=== PATIENT | female | born 1935 | race Caucasian/White ===

== ENCOUNTER 2017-11-28 13:03 | Inpatient (IN) | payer BC ==
[~2017-11-28] VITALS: Ht 174 cm; Wt 63.5 kg
[2017-11-28] VITALS (10 sets, daily range): BP systolic 130–156; BP diastolic 55–82
[2017-11-28] MEDS ORDERED: IV NS 0.9% 1,000 ML BAG IV ONE (13:30)
--- NOTE | 2017-11-28 13:30 | NUR ---
WITNESSED SYNCOPE AT BOARD AND CARE, ASSISTED TO FLOOR. PT AAOX3, VSS. DENIES CP, SOB, DIZZINESS, N/V/D, WEAKNESS @ THIS TIME. PT SEEN & EVAL'D BY COLT. WILL CONT TO MONITOR.
[2017-11-28 13:44] LABS: BASOPHILS % (AUTO) 0.3 % (0.0-2.0); EOSINOPHILS % (AUTO) 2.8 % (0.0-6.0); HEMATOCRIT 25 % (33-45); HEMOGLOBIN 7.6 g/dL (11.5-14.8); LYMPHOCYTES # (AUTO) 0.5 /CMM (0.8-4.8); LYMPHOCYTES % (AUTO) 10.7 % (20.0-44.0); MEAN CORPUSCULAR HGB CONC 31 g/dl (31.0-36.0); MEAN CORPUSCULAR VOLUME 71 fL (82-100); MONOCYTES # (AUTO) 0.4 /CMM (0.1-1.30); MONOCYTES % (AUTO) 7.2 % (2.0-12.0); PLATELET COUNT (AUTO) 282 /CMM (150-450); RDW COEFFICIENT OF VARIATION 18.5 (11.5-15.0); RED BLOOD CELL COUNT(AUTO) 3.47 MIL/uL (4.0-5.2)
[2017-11-28 13:54] LABS: CALCIUM, SERUM 8.1 mg/dL (8.5-10.1); CARBON DIOXIDE 27 mmol/L (21-32); CHLORIDE 107 mmol/L (98-107); CREATININE 1.2 mg/dL (0.6-1.3); GLUCOSE 98 mg/dL (74-106); SODIUM SERUM 140 mmol/L (136-145); UREA NITROGEN, BLOOD 21 mg/dL (7-18)
[2017-11-28 13:58] LABS: INR 1.03 (0.85-1.15)
[2017-11-28 14:03] LABS: TROPONIN I < 0.017 ng/mL (0.00-0.056)
[2017-11-28] MEDS ORDERED: PANTOPRAZOLE 40 MG VIAL IV ONE (15:00)
[2017-11-28] MEDS ORDERED: PANTOPRAZOLE 40 MG VIAL ONE (15:48)
[2017-11-28] MEDS ORDERED: DONE10TA44 PO (15:50)
[2017-11-28] MEDS ORDERED: FOLI1TAB16 PO (15:50)
[2017-11-28] MEDS ORDERED: ASPI-1169 PO (15:50)
[2017-11-28] MEDS ORDERED: THIA100T13 PO (15:50)
[2017-11-28] MEDS ORDERED: FISH1CAP16 PO (15:50)
[2017-11-28] MEDS ORDERED: ACET-868 PO (15:50)
[2017-11-28] MEDS ORDERED: FEXO-63 PO (15:50)
[2017-11-28] MEDS ORDERED: SERT25TA PO (15:50)
[2017-11-28] MEDS ORDERED: OMEP20CA10 PO (15:50)
[2017-11-28] MEDS ORDERED: MEMA10TA PO (15:50)
[2017-11-28] MEDS ORDERED: ATOR10TA PO (15:50)
[2017-11-28] MEDS ORDERED: MULT-1160 PO (15:50)
[2017-11-28] MEDS ORDERED: FLUT16SP BNOSTRILS (15:50)
--- NOTE | 2017-11-28 15:53 | NUR ---
PT LAYING COMFORTABLY, VSS. DENIES CP, SOB, DIZZINESS, N/V/D, WEAKNESS @ THIS TIME. WILL CONT TO MONITOR.
[2017-11-28 15:57] LABS: OCCULT BLOOD STOOL NEGATIVE (NEGATIVE)
[2017-11-28] MEDS ORDERED: ONDANSETRON HCL/PF 4 MG/2 ML VIAL IVP PRN (16:30)
[2017-11-28] MEDS ORDERED: HYDROCODONE/APAP 5/325MG 1 EACH TABLET PO PRN (16:30)
[2017-11-28] MEDS ORDERED: MAGNESIUM HYDROXIDE 30 ML UDC PO PRN (16:30)
[2017-11-28] MEDS ORDERED: ZOLPIDEM TARTRATE 5 MG TABLET PO PRN (16:30)
--- NOTE | 2017-11-28 17:00 | NUR ---
MEDICAL ASSISTANT PER DIEMCLOCK ASSEMBLER NOTE PATIENT WAS BROUGHT TO THE UNITE ON A GURNEY FROM ER, ACCOMPANIED BY PRINTING MACHINIST BURTON AND THE HOSPITALITY HOST. PATIENT IS ALERT ORIENTED X3, ON ROOM AIR , TOLERATING WELL. PATIENT IS STEADY, AMBULATED FROM GURNEY TO THE BED INDEPENDENTLY. RESPIRATIONS EVEN AND UNLABORED, IN NO APPARENT DISTRESS OR DISCOMFORT AT THIS TIME. DENIES PAIN AND SOB. PATIENT IS STABLE, VITAL SIGNS STABLE. PHYSICAL ASSESSMENT PERFORMED, HISTORY OF HEALTH CONDITIONS OBTAINED FROM THE PATIENT. PATIENT IS WITH HER PERSONAL CLOTHES, REFUSED TO CHANGE INTO A HOSPITAL GOWN FOR NOW. REFUSED SKIN CHECK BUT REPORTED SHE DOES NOT HAVE ANY IMPAIRMENTS, NO OPEN WOUNDS. AUXILIARY ENGINEER WAS APPLIED. SINUS RHYTHM IS SHOWING ON THE SCREEN. REVIEWED PATIENT'S BELONGINGS LIST, SIGNED BY STEPHIE SHELL WAS PLACED IN A CHART. PATIENT WITH RIGHT FA IVC 20G, SALINE LOCK. PATENT AND INTACT. SAFETY MEASURES WERE APPLIED. BED IN LOW LOCKED POSITION, SIDE RAILS UP X2, CALL LIGHT WITHIN EASY REACH. ORIENTED TO THE ROOM AND THE UNIT. NOTIFIED DINO GONZALEZ NP ABOUT PATIENT'S ARRIVAL. WILL CARRY OUT FURTHER ORDERS AND CONTINUE TO MONITOR.
[2017-11-28] MEDS: PANTOPRAZOLE 40 MG VIAL IV SCH (17:23)
[2017-11-28] MEDS: IV NS 0.9% 1,000 ML IV PRN (17:23)
--- NOTE | 2017-11-28 18:10 | NUR ---
PATIENT BECOME CONFUSED AND DISORIENTED. PULLED OUT HER IV WHILE TRYING TO GET OUT OF BED, TIP WAS CHECKED AND WAS INTACT. REPORTS SHE IS GOING HOME AND SHE DOESNT KNOW WHY SHE IS HERE. REORIENTED TO THE REALITY. ENCOURAGED REST. WILL CONTINUE TO MONITOR AT THIS TIME.
--- NOTE | 2017-11-28 18:30 | NUR ---
NEW IV PLACED ON LEFT FOREARM 20G. SALINE LOCK AT THIS TIME TO PREVENT PATIENT FROM PULLING IT OUT AGAIN. WILL CONTINUE TO MONITOR.
--- NOTE | 2017-11-28 19:30 | NUR ---
SCRIPT READER CLOSING NOTE PATIENT IN BED. ALERT, ORIENTED X1-2. ON ROOM AIR, TOLERATING WELL. IN NO APPARENT DISTRESS OR DISCOMFORT AT THIS TIME. RESPIRATIONS EVEN AND UNLABORED. DENIES PAIN AND SOB. PATIENT IS ABLE TO COMMUNICATE NEEDS. NEEDS FREQUENT REORIENTATION. ABLE TO AMBULATE TO THE BATHROOM INDEPENDENTLY. ON TELE MONITORING WITH SINUS RHYTHM AND HR OF 76. LEFT FA 20G, IVC, PATENT AND INTACT. SL AT THIS TIME. PATIENT KEPT CLEAN AND COMFORTABLE, REFUSED TO WEAR A HOSPITAL GOWN. SAFETY MEASURES IN PLACE, BED IN LOW LOCKED POSITION, SIDE RAILS UP X2, ROOM CLOSE TO THE NURSING STATION. CALL LIGHT WITHIN EASY REACH. WILL ENDORSE TO PM NURSE FOR ULISSES.
[2017-11-28 20:21] LABS: IRON, SERUM 15 ug/dl (50-175); TOTAL IRON BINDING CAPACITY 347 ug/dl (250-450)
[2017-11-29] VITALS (8 sets, daily range): BP systolic 127–161; BP diastolic 58–76
--- NOTE | 2017-11-29 01:19 | NUR ---
RN NOTES PATIENT TOLERATED ONE UNIT OF PACKED RBC TRANSFUSION. NO ADVERSE REACTION NOTED. WILL CONTINUE TO MONITOR.
--- NOTE | 2017-11-29 01:43 | NUR ---
RECEIVED PATIENT IN BED AWAKE. AO X 1, ABLE TO MAKE NEEDS KNOWN. NO ACUTE DISTRESS NOTED. DENIES ANY PAIN AT THIS TIME. IV SITE PATENT, INTACT; FLUSHED. SAFETY REMINDERS GIVEN. ON LOW BED WITH BILATERAL UPPER SIDE RAILS UP. CALL STINSON WITHIN EASY REACH. WILL CONTINUE TO MONITOR.
--- NOTE | 2017-11-29 06:18 | NUR ---
PATIENT ASLEEP, EASILY AROUSABLE. RESPIRATIONS EVEN. NO SIGNS OF PAIN NOTED. NEEDS ATTENDED. KEPT CLEAN AND DRY. SAFETY PRECAUTIONS AND COMFORT MEASURES IN PLACE. WILL GIVE REPORT TO DAY SHIFT FOR CONTINUITY OF CARE.
[2017-11-29 07:02] LABS: CALCIUM, SERUM 8.2 mg/dL (8.5-10.1); CARBON DIOXIDE 25 mmol/L (21-32); CHLORIDE 110 mmol/L (98-107); GLUCOSE 99 mg/dL (74-106); PHOSPHORUS 4.1 mg/dL (2.5-4.9); SODIUM SERUM 144 mmol/L (136-145); UREA NITROGEN, BLOOD 20 mg/dL (7-18)
[2017-11-29 07:07] LABS: CHOLESTEROL 145 mg/dL (<200); HDL CHOLESTEROL 71 mg/dL (40-60); LDL 73 mg/dL (0-99); TRIGLYCERIDES 60 mg/dL (30-150)
[2017-11-29 07:29] LABS: BASOPHILS % (AUTO) 0.3 % (0.0-2.0); EOSINOPHILS % (AUTO) 3.1 % (0.0-6.0); HEMATOCRIT 28 % (33-45); HEMOGLOBIN 8.3 g/dL (11.5-14.8); LYMPHOCYTES # (AUTO) 0.7 /CMM (0.8-4.8); LYMPHOCYTES % (AUTO) 15.4 % (20.0-44.0); MEAN CORPUSCULAR HGB CONC 30 g/dl (31.0-36.0); MEAN CORPUSCULAR VOLUME 74 fL (82-100); MONOCYTES # (AUTO) 0.4 /CMM (0.1-1.30); MONOCYTES % (AUTO) 7.8 % (2.0-12.0); NEUTROPHILS # (AUTO) 3.3 /CMM (1.8-8.9); NEUTROPHILS % (AUTO) 73.4 % (43.0-81.0); PLATELET COUNT (AUTO) 250 /CMM (150-450); RDW COEFFICIENT OF VARIATION 20.2 (11.5-15.0); RED BLOOD CELL COUNT(AUTO) 3.71 MIL/uL (4.0-5.2); WHITE BLOOD COUNT (AUTO) 4.5 K/uL (4.3-11.0)
--- NOTE | 2017-11-29 07:41 | NUR ---
CROSS ENTERPRISE INTEGRATOR OPENING NOTE RECEIVED PATIENT IN BED. SLEEPING, EASILY AROUSED WITH VERBAL STIMULI, ORIENTED X2. ON ROOM AIR, TOLERATING WELL. IN NO APPARENT DISTRESS OR DISCOMFORT AT THIS TIME. RESPIRATIONS EVEN AND UNLABORED. DENIES PAIN AND SOB. PATIENT IS ABLE TO COMMUNICATE NEEDS. NEEDS FREQUENT REORIENTATION. ABLE TO AMBULATE TO THE BATHROOM INDEPENDENTLY. ON TELE MONITORING WITH SINUS RHYTHM AND HR OF 65. LEFT FA 20G IVC WITH FLUIDS RUNNING AT 60ML/HR, PATENT AND INTACT. PATIENT KEPT CLEAN AND COMFORTABLE. SAFETY MEASURES IN PLACE, BED IN LOW LOCKED POSITION, SIDE RAILS UP X2, ROOM CLOSE TO THE NURSING STATION. CALL LIGHT WITHIN EASY REACH. WILL CONTINUE TO MONITOR.
[2017-11-29 10:02] LABS: EOSINOPHILS % (MANUAL) 4 % (0-4); LYMPHOCYTES % (MANUAL) 15 % (16-48); MONOCYTES % (MANUAL) 3 % (0-11.0); NEUTROPHILS % (MANUAL) 78 (42-76)
[2017-11-29 10:46] LABS: THYROID STIMULATING HORMONE 4.89 uIU/mL (0.358-3.74); URIC ACID 3.5 mg/dL (2.6-7.2)
[2017-11-29] MEDS: ASPIRIN 81 MG TAB.CHEW PO SCH (11:01)
[2017-11-29] MEDS: MEMANTINE HCL 5 MG TABLET PO SCH ×2 (11:01→18:09)
[2017-11-29] MEDS: FLUTICASONE PROPIONATE 16 GM BOTTLE NS SCH (13:43)
[2017-11-29] MEDS ORDERED: SOD FERRIC GLUC 125 MG in IV NS 0.9% 100 ML IV SCH (14:00)
[2017-11-29] MEDS ORDERED: FEXOFENADINE HCL (60 MG) 60 MG TABLET PO PRN (17:00)
[2017-11-29] MEDS: PANTOPRAZOLE 40 MG VIAL IV SCH (18:09)
--- NOTE | 2017-11-29 18:45 | NUR ---
MS RN CLOSING NOTE PATIENT IN BED. ALERT, ORIENTED X1-2. FREQUENT EPISODES OF DISORIENTATION AND CONFUSION. ON ROOM AIR, TOLERATING WELL. IN NO APPARENT DISTRESS OR DISCOMFORT AT THIS TIME. RESPIRATIONS EVEN AND UNLABORED. DENIES PAIN AND SOB. PATIENT IS ABLE TO COMMUNICATE NEEDS. NEEDS FREQUENT REORIENTATION. ABLE TO AMBULATE TO THE BATHROOM INDEPENDENTLY. LEFT FA 20G, IVC, PATENT AND INTACT SL AT THIS TIME. PATIENT KEPT CLEAN AND COMFORTABLE, REFUSED TO WEAR A HOSPITAL GOWN. SAFETY MEASURES IN PLACE, BED IN LOW LOCKED POSITION, SIDE RAILS UP X2, ROOM CLOSE TO THE NURSING STATION. CALL LIGHT WITHIN EASY REACH. WILL ENDORSE TO PM NURSE FOR ULISSES.
--- NOTE | 2017-11-29 19:00 | NUR ---
PATIENT PULLED OUT HER IV CANAL. DISCUSSED WITH TOMMY, THE PM RN. PATIENT NOTED TO HAVE INCREASED CONFUSION AND DISORIENTATION. CLAIMS THE IV WAS THERE FOR WEEKS NOW, THAT IS WHY SHE REMOVED IT TO HAVE A NEW ONE. ENDORSED TO PM NURSE TO ESTABLISH NEW ACCESS.
--- NOTE | 2017-11-29 19:10 | NUR ---
MS RN OPENING NOTE Patient was seen sitting in a chair by the bedside AAOx1; patient is well-spoken, but very forgetful with episodes of confusion. Patient is breathing comfortably on RA with no SOB and no signs of acute distress. Per day shift nurse, patient pulled out her IV just prior to shift change; this is the fourth IV that the patient has removed, despite education and using kerilex to cover. I oriented patient to time and place, and provided education on use of the call proctor. Patient has no immediate needs or concerns at this time. Will continue to monitor.
[2017-11-29 20:57] LABS: APPEARANCE,URINE CLEAR (CLEAR); BILIRUBIN,URINE NEGATIVE (NEGATIVE); BLOOD, URINE NEGATIVE Ery/uL (NEGATIVE); COLOR,URINE YELLOW (YELLOW); KETONES,URINE NEGATIVE (NEGATIVE); LEUKOCYTE ESTERASE ,URINE NEGATIVE (NEGATIVE); NITRITE, URINE NEGATIVE (NEGATIVE); PROTEIN,URINE NEGATIVE (NEGATIVE); UGLUCOSE NEGATIVE (NEGATIVE); UROBILINOGEN,URINE 0.2 EU/dL (0.2)
--- NOTE | 2017-11-29 21:35 | NUR ---
MS RN NOTE - New IV Patient had pulled out her IV just prior to shift change (see previous notes). New IV 20g was placed in the left FA with positive blood return and good flush. NS at 60ml/hr is running with no signs of leaking or infiltration. Patient with history of dementia was provided with education on IV. IV was also wrapped with Kerilex to help prevent patient from pulling on it.
[2017-11-29] MEDS ORDERED: ATORVASTATIN 10 MG TABLET PO SCH (22:00)
[2017-11-29] MEDS ORDERED: DONEPEZIL 5 MG TABLET PO SCH (22:00)
[2017-11-30] MEDS: IV NS 0.9% 1,000 ML IV PRN (00:38)
--- NOTE | 2017-11-30 03:00 | NUR ---
MS RN NOTE - IV pulled out Upon entering patient's room I observed that her IV had been removed and was sitting on the bedside table. The patient opened her eyes, and I said, "Sailaja, you pulled your IV out". The patient responded, "I did?" and looked at her arm and said, "Oh I guess I did". I explained to the patient why she shouldn't pull her IVs out (per previous reports, this is the fifth IV that she's removed), provided her education on the purpose of having the IV, and told her that I'd like to put another IV in. The patient refused, but said that she might allow me to do so later in the morning. I will try again later.
--- NOTE | 2017-11-30 06:00 | NUR ---
MS RN NOTE - New IV Patient agreed to let me put in a new IV. 20g IV was inserted into the right forearm with positive blood return and good flush. Patient was educated on the purpose of IV and necessity of it staying in. IV was wrapped with Kerlix and covered with burn netting to help prevent patient from pulling it out.
--- NOTE | 2017-11-30 07:28 | NUR ---
MS RN CLOSING NOTE Patient is AAOx1, breathing comfortably on RA with no SOB, and no signs of acute distress. Patient pulled out her IV in the middle of the night; this was the fifth IV patient pulled out since admission. New IV inserted in the right FA, patent and intact. Otherwise patient slept well with no complications overnight and remains in stable condition. Bed is low/locked, two side rails up, and call proctor within reach. Patient care endorsed to day shift nurse.
[2017-11-30 07:37] LABS: BASOPHILS % (AUTO) 0.7 % (0.0-2.0); EOSINOPHILS % (AUTO) 4.1 % (0.0-6.0); HEMATOCRIT 27 % (33-45); HEMOGLOBIN 8.4 g/dL (11.5-14.8); LYMPHOCYTES # (AUTO) 0.5 /CMM (0.8-4.8); LYMPHOCYTES % (AUTO) 14.9 % (20.0-44.0); MEAN CORPUSCULAR HGB CONC 32 g/dl (31.0-36.0); MEAN CORPUSCULAR VOLUME 73 fL (82-100); MONOCYTES # (AUTO) 0.4 /CMM (0.1-1.30); MONOCYTES % (AUTO) 10.5 % (2.0-12.0); NEUTROPHILS # (AUTO) 2.6 /CMM (1.8-8.9); NEUTROPHILS % (AUTO) 69.8 % (43.0-81.0); PLATELET COUNT (AUTO) 269 /CMM (150-450); RDW COEFFICIENT OF VARIATION 19.7 (11.5-15.0); RED BLOOD CELL COUNT(AUTO) 3.65 MIL/uL (4.0-5.2); WHITE BLOOD COUNT (AUTO) 3.6 K/uL (4.3-11.0)
[2017-11-30 07:38] LABS: CALCIUM, SERUM 8.1 mg/dL (8.5-10.1); CARBON DIOXIDE 26 mmol/L (21-32); CHLORIDE 107 mmol/L (98-107); CREATININE 1.1 mg/dL (0.6-1.3); GLUCOSE 91 mg/dL (74-106); PHOSPHORUS 4.3 mg/dL (2.5-4.9); POTASSIUM 3.8 mmol/L (3.5-5.1); SODIUM SERUM 139 mmol/L (136-145); UREA NITROGEN, BLOOD 17 mg/dL (7-18)
[2017-11-30 08:00] VITALS: BP 166/70
[2017-11-30] MEDS: FLUTICASONE PROPIONATE 16 GM BOTTLE NS SCH (08:45)
[2017-11-30] MEDS: ASPIRIN 81 MG TAB.CHEW PO SCH (08:46)
[2017-11-30] MEDS: MEMANTINE HCL 5 MG TABLET PO SCH (08:46)
[2017-11-30] MEDS ORDERED: SERTRALINE HCL 25 MG TABLET PO SCH (09:00)
[2017-11-30] MEDS ORDERED: FOLIC ACID 1 MG TABLET PO SCH ×2 (09:00)
[2017-11-30] MEDS ORDERED: THIAMINE HCL 100 MG TABLET PO SCH (09:00)
[2017-11-30] MEDS ORDERED: MULTIVIT, IRON, MIN NO. 8, FA 1 TAB PO SCH (09:00)
--- NOTE | 2017-11-30 12:32 | NUR ---
PATIENT AAOX3 ALL FOLLOW COMMANDS FORGETFUL ROOM AIR NO SOB NON LABORED BREATHING ABDOMEN SOFT NON TENDER DIET TOLERATED SKIN IS DRY INTACT NO EDEMA NOTED DISCHARGE INSTRUCTION PROVIDED TO PT AND ASSIST LIVING FACILITY RUTH PT BASE LINE BLOOD PRESSURE IS 150 TO 170 ENDORSED TO PMD FOLLOW UP DIET ACTIVIT PT VERBALIZED UNDERSTANDING WELL ALL BELONGS RELEASED IV HELP LOCK REMOVED PATIENT DISCHARGED TO [facility] BY AMBULANCE AT 1230
[2017-12-01 12:17] LABS: CALCITRIOL VIT D,1, 25 DIHYDRO 32.5 pg/mL (19.9-79.3)
== END 2017-11-30 12:15 | DRG 811 ==
LOC: ER 13:04 → TELE 15:23 → MED 11-29 16:12
PROVIDERS: ADMIT Nurse Practitioner Acute Care; ATTEND Nurse Practitioner Acute Care
PROC: 30233N1 Transfusion of Nonautologous Red Blood Cells into Peripheral Vein, Percutaneous Approach (ICD-10-PCS; principal; 2017-11-28)
DX: D50.9 Iron deficiency anemia, unspecified (principal); G93.41 Metabolic encephalopathy; F03.90 Unspecified dementia, unspecified severity, without behavioral disturbance, psychotic disturbance, mood disturbance, and anxiety; I10 Essential (primary) hypertension; Z79.82 Long term (current) use of aspirin; Z79.899 Other long term (current) drug therapy; E86.0 Dehydration
CPT/HCPCS: 36415; 70450-TC; 71045-TC; 80048-TC; 80061-TC; 81000-TC; 82272-TC; 82378; 82652; 82728-TC; 83540-TC; 83615-TC; 83735-TC; 84100-TC; 84443-TC; 84484-TC; 84550-TC; 85025-TC; 85730-TC; 86850-TC; 86921-TC; 87081-TC; 87086-TC; A4606; C9113; J2916; J7030; J7050; P9016-BL; Z7610

== ENCOUNTER 2018-09-01 12:38 | Inpatient (IN) | payer BC ==
[~2018-09-01] VITALS: Ht 172.7 cm; Wt 61.2 kg
[~2018-09-01 12:38] MED LIST: ACET-868 PO; ASPI-1169 PO; ATOR10TA PO; DONE10TA44 PO; FEXO-63 PO; FISH1CAP16 PO; FLUT16SP BNOSTRILS; FOLI1TAB16 PO; MEMA10TA PO; MULT-1160 PO; OMEP20CA10 PO; SERT25TA PO; THIA100T13 PO
--- NOTE | 2018-09-01 12:51 | NUR ---
BIB [facility], UNWITNESSED SYNCOPAL EPISODE WHILE WALKING,STS, SHE WOKE UP ON THE GROUND AND CALLED FOR HELP. PATIENT A/OX4, BREATHING EVEN AND UNLABORED, ATTACHED ON THE ELECTRICAL PARTS RECONDITIONER. WAITING FOR MD PATRICIA.
[2018-09-01] MEDS ORDERED: IV NS 0.9% 1,000 ML BAG IV ONE (13:00)
[2018-09-01 13:05] LABS: BASOPHILS % (AUTO) 0.6 % (0.0-2.0); EOSINOPHILS % (AUTO) 1.4 % (0.0-6.0); HEMATOCRIT 24 % (33-45); HEMOGLOBIN 7.5 g/dL (11.5-14.8); LYMPHOCYTES # (AUTO) 0.5 /CMM (0.8-4.8); LYMPHOCYTES % (AUTO) 8.5 % (20.0-44.0); MEAN CORPUSCULAR HGB CONC 31 g/dl (31.0-36.0); MEAN CORPUSCULAR VOLUME 73 fL (82-100); MONOCYTES # (AUTO) 0.4 /CMM (0.1-1.30); MONOCYTES % (AUTO) 7.7 % (2.0-12.0); NEUTROPHILS # (AUTO) 4.5 /CMM (1.8-8.9); NEUTROPHILS % (AUTO) 81.8 % (43.0-81.0); PLATELET COUNT (AUTO) 205 /CMM (150-450); RED BLOOD CELL COUNT(AUTO) 3.31 MIL/uL (4.0-5.2); WHITE BLOOD COUNT (AUTO) 5.5 K/uL (4.3-11.0)
[2018-09-01 13:12] LABS: CALCIUM, SERUM 7.7 mg/dL (8.5-10.1); CARBON DIOXIDE 25 mmol/L (21-32); CHLORIDE 111 mmol/L (98-107); GLUCOSE 95 mg/dL (74-106); POTASSIUM 4.2 mmol/L (3.5-5.1); SODIUM SERUM 142 mmol/L (136-145); UREA NITROGEN, BLOOD 21 mg/dL (7-18)
[2018-09-01] MEDS ORDERED: LACT-58 PO (13:17)
[2018-09-01] MEDS ORDERED: CYAN100T3 PO (13:17)
[2018-09-01] MEDS ORDERED: LOSA25TA27 PO (13:17)
[2018-09-01] MEDS ORDERED: AZEL137S7 BNOSTRILS (13:17)
[2018-09-01] MEDS ORDERED: SIME40DR2 PO (13:17)
[2018-09-01] MEDS ORDERED: MULT-1168 PO (13:17)
[2018-09-01 13:19] LABS: ALANINE AMINOTRANSFERASE 17 U/L (12-78); ALKALINE PHOSPHATASE 55 U/L (46-116); ASPARTATE AMINOTRANSFERASE 19 U/L (15-37); BILIRUBIN,DIRECT 0.2 mg/dL (0.0-0.2); TOTAL PROTEIN, SERUM 5.4 g/dL (6.4-8.2)
--- NOTE | 2018-09-01 13:47 | NUR ---
PAGED DR QUINTEROS FOR ADMISSION
[2018-09-01 14:06] LABS: EOSINOPHILS % (MANUAL) 3 % (0-4); LYMPHOCYTES % (MANUAL) 3 % (16-48); MONOCYTES % (MANUAL) 6 % (0-11.0); NEUTROPHILS % (MANUAL) 88 (42-76)
--- NOTE | 2018-09-01 14:50 | NUR ---
REPORT GIVEN TO ROMINA BARGER
[2018-09-01 15:17] LABS: OCCULT BLOOD STOOL POSITIVE (NEGATIVE)
[2018-09-01] MEDS ORDERED: PANTOPRAZOLE 40 MG VIAL IV SCH (15:30)
--- NOTE | 2018-09-01 15:30 | NUR ---
PATIENT TRANSFERRED TO ROOM 104, ROOM CHANGED BY CHARGE NURSE. PATIENT A/OX4, DENIES DIZZINESS, IN STABLE CONDITION.
[2018-09-01] MEDS ORDERED: PANTOPRAZOLE 40 MG VIAL ONE (15:47)
[2018-09-01] MEDS ORDERED: MAG HYDROX/AL HYDROX/SIMETH 30 ML UDC PO PRN (16:00)
[2018-09-01] MEDS ORDERED: HYDROCODONE/APAP 5/325MG 1 EACH TABLET PO PRN (16:00)
[2018-09-01] MEDS ORDERED: MAGNESIUM HYDROXIDE 30 ML UDC PO PRN (16:00)
[2018-09-01] MEDS ORDERED: ONDANSETRON HCL/PF 4 MG/2 ML VIAL IVP PRN (16:00)
[2018-09-01] MEDS ORDERED: ACETAMINOPHEN 325 MG TABLET PO PRN (16:00)
[2018-09-01] MEDS ORDERED: Z GUARD REMEDY 2 OZ OINT TP PRN (16:00)
[2018-09-01] MEDS ORDERED: ZOLPIDEM TARTRATE 5 MG TABLET PO PRN (16:00)
[2018-09-01 17:00] VITALS: BP 140/82
[2018-09-01] MEDS: ENSURE ENLIVE 237 ML LIQUID (VANILLA) PO SCH (17:00)
[2018-09-01] MEDS: SIMETHICONE SUSP 40 MG/0.6 ML BOTTLE PO SCH (17:00)
[2018-09-01] MEDS: MEMANTINE HCL 5 MG TABLET PO SCH (17:00)
[2018-09-01] MEDS: DONEPEZIL 5 MG TABLET PO SCH (17:00)
[2018-09-01] MEDS: NEXIUM 40 MG VIAL IV SCH (17:49)
--- NOTE | 2018-09-01 18:42 | NUR ---
BLOOD BANK ISSUES RN BROUGHT CONSENT ALONG WITH BLOOD BANK STICKER TO THE LAB. LAB ACCEPTED AND VERIFIED STICKER WAS PRESENT OFF THE PATIENT DIRECTLY. RN CAME DIRECTLY BACK TO SCAN BLOOD BANK TAG AND IT WAS CUT OFF. RN AND PATIENT UNAWARE OF THE REMOVAL OF BLOOD BANK TAG. LAB AWARE, NEED TO RETURN BLOOD AND REPEAT ENTIRE PROCESS DUE TO INAPPROPRIATE REMOVAL OF BLOOD BANK BAND. WILL ENDORSE TO NEXT SHIFT.
--- NOTE | 2018-09-01 19:30 | NUR ---
TAPE RECORDING MACHINE OPERATOR NOTE: RECEIVED PT ON BED ALERT AND ORIENTED X3. ABLE TO MAKE NEEDS KNOWN. NO APPARENT DISTRESS NOTED. PT COMPLAINING OF 5/10 HIP PAIN. ON ROOM AIR, BREATHING EVEN AND UNLABORED WITH NORMAL RESPIRATIONS. ON TELE MONITOR SINUS RHYTHM HR 70BPM. IV ON RIGHT FOREARM #20 INTACT AND PATENT, FLUSHING WELL. KEPT CLEAN, DRY AND COMFORTABLE. CALL LIGHT PLACED WITHIN REACH. SIDE RAILS UP X3. PT REFUSED TO PUT THE BED ALARM ON, EXPLAINED RISKS AND BENEFITS TO PT BUT PT STILL REFUSED TO TURN IT ON. WILL MONITOR THE PT CLOSELY.
[2018-09-01 20:00] VITALS: BP 154/70
--- NOTE | 2018-09-01 21:10 | NUR ---
SHEET IRONWORKER NOTE: PT STATED THAT SHE WANTS TO LEAVE AMA TOMORROW AM, PER PT "I WANT TO GO BACK TO MY FACILITY. I KNOW MY BODY, THERE'S NOTHING WRONG WITH ME". EXPLAINED TO HER THE RISKS OF LEAVING AMA AND THE PLAN OF CARE BUT PT STILL VERBALIZING THAT SHE WANTS TO LEAVE AND THAT SHE REFUSED THE PROCEDURE THAT WAS SUPPOSED TO BE DONE TOMORROW. HAFSA SERRANO, NADINE NOTIFIED REGARDING PATIENT'S REFUSAL OF THE PROCEDURE. CHARGE NURSE SAUL ALSO MADE AWARE
[2018-09-01] MEDS: ATORVASTATIN 10 MG TABLET PO SCH (21:21)
[2018-09-01 21:54] VITALS: BP 154/70
[2018-09-01] MEDS: SUCRALFATE 1 G TABLET PO SCH (22:00)
[2018-09-01 22:14] VITALS: BP 158/71
[2018-09-01 22:44] VITALS: BP 154/74
[2018-09-02] VITALS (7 sets, daily range): BP systolic 148–172; BP diastolic 52–88
[2018-09-02] MEDS: IV NS 0.9% 1,000 ML IV PRN ×2 (02:38→22:35)
--- NOTE | 2018-09-02 02:44 | NUR ---
INSULATION MACHINE OPERATOR NOTE: PT HAD EPISODES OF CONFUSION. PT PULLED OUT HER IV X2. CHARGE NURSE AWARE. WILL CONTINUE TO MONITOR PT.
[2018-09-02 06:37] LABS: BASOPHILS % (AUTO) 0.4 % (0.0-2.0); EOSINOPHILS % (AUTO) 2.4 % (0.0-6.0); HEMATOCRIT 32 % (33-45); HEMOGLOBIN 10.2 g/dL (11.5-14.8); LYMPHOCYTES # (AUTO) 0.7 /CMM (0.8-4.8); LYMPHOCYTES % (AUTO) 12.8 % (20.0-44.0); MEAN CORPUSCULAR HGB CONC 32 g/dl (31.0-36.0); MEAN CORPUSCULAR VOLUME 74 fL (82-100); MONOCYTES # (AUTO) 0.5 /CMM (0.1-1.30); MONOCYTES % (AUTO) 8.4 % (2.0-12.0); NEUTROPHILS # (AUTO) 4.4 /CMM (1.8-8.9); PLATELET COUNT (AUTO) 235 /CMM (150-450); RED BLOOD CELL COUNT(AUTO) 4.31 MIL/uL (4.0-5.2); WHITE BLOOD COUNT (AUTO) 5.8 K/uL (4.3-11.0)
--- NOTE | 2018-09-02 06:40 | NUR ---
SERVICE OPERATIONS MANAGER NOTES: PT STILL HAS EPISODES OF CONFUSION, BUT NO APPARENT DISTRESS NOTED AT THIS TIME. NO COMPLAINTS OF PAIN OR DISCOMFORT. ON ROOM AIR, NO SOB NOTED. SINUS RHYTHM ON TELE MONITOR HR 72BPM. IV REINSERTED ON LEFT FOREARM #20, IVF INFUSING WELL. PT WAS ABLE TO AMBULATE TO THE BATHROOM WITH ASSIST. CALL LIGHT PLACED WITHIN REACH. SAFETY AND FALL PRECAUTIONS OBSERVED AND MAINTAINED. WILL ENDORSE TO DAY SHIFT RN FOR CONTINUITY OF CARE.
[2018-09-02 06:50] LABS: CALCIUM, SERUM 8.6 mg/dL (8.5-10.1); CARBON DIOXIDE 24 mmol/L (21-32); CHLORIDE 106 mmol/L (98-107); CREATININE 1.1 mg/dL (0.6-1.3); GLUCOSE 91 mg/dL (74-106); PHOSPHORUS 3.6 mg/dL (2.5-4.9); POTASSIUM 3.8 mmol/L (3.5-5.1); SODIUM SERUM 141 mmol/L (136-145); UREA NITROGEN, BLOOD 15 mg/dL (7-18)
[2018-09-02 06:52] LABS: CHOLESTEROL 150 mg/dL (<200); HDL CHOLESTEROL 72 mg/dL (40-60); LDL 70 mg/dL (0-99); THYROID STIMULATING HORMONE 5.408 uIU/mL (0.358-3.74); TRIGLYCERIDES 75 mg/dL (30-150)
--- NOTE | 2018-09-02 07:05 | NUR ---
IT INFRASTRUCTURE ENGINEER OPENING NOTES RECEIVED PT LYING ON BED,ALERT/ORIENTED X3 WITH EPISODES OF CONFUSION..ON TELE HR IS SR WITH 63.NO SOB AND ACUTE DISTRESS NOTED,ON ROOM AIR.1:1 SITTER IS AT BEDSIDE.IV LINE IS ON LEFT FA G20,SITE IS CLEAN,DRY AND INTACT.NO INFILTRATION NOTED.BED IS IN LOW POSITION AND LOCKED.CALL LIGHT IS WITHIN REACH,WILL CONTINUE TO MONITOR THE PT CLOSELY.
[2018-09-02] MEDS ORDERED: PANTOPRAZOLE 40 MG TABLET.DR PO SCH (07:30)
[2018-09-02 07:48] LABS: IRON, SERUM 44 ug/dl (50-175); TOTAL IRON BINDING CAPACITY 373 ug/dl (250-450)
[2018-09-02 08:28] LABS: EOSINOPHILS % (MANUAL) 1 % (0-4); LYMPHOCYTES % (MANUAL) 11 % (16-48); MONOCYTES % (MANUAL) 8 % (0-11.0); NEUTROPHILS % (MANUAL) 80 (42-76)
[2018-09-02] MEDS: DONEPEZIL 5 MG TABLET PO SCH ×2 (08:36→16:17)
[2018-09-02] MEDS: FOLIC ACID 1 MG TABLET PO SCH (08:36)
[2018-09-02] MEDS: MULTIVITAMIN/LUTEIN/MINERALS 1 TAB PO SCH (08:36)
[2018-09-02] MEDS: MEMANTINE HCL 5 MG TABLET PO SCH ×2 (08:36→16:17)
[2018-09-02] MEDS: CYANOCOBALAMIN 100 MCG TABLET PO SCH (08:36)
[2018-09-02] MEDS: SERTRALINE HCL 25 MG TABLET PO SCH (08:36)
[2018-09-02] MEDS: ENSURE ENLIVE 237 ML LIQUID (VANILLA) PO SCH ×2 (08:37→18:34)
[2018-09-02] MEDS: SIMETHICONE SUSP 40 MG/0.6 ML BOTTLE PO SCH ×3 (08:37→16:16)
[2018-09-02] MEDS: THIAMINE HCL 100 MG TABLET PO SCH (08:37)
[2018-09-02] MEDS: SUCRALFATE 1 G TABLET PO SCH ×4 (08:37→21:05)
[2018-09-02] MEDS: LOSARTAN POTASSIUM 25 MG TABLET PO SCH (10:17)
--- NOTE | 2018-09-02 10:17 | NUR ---
BROKE WORKER NOTES PT IS SCHEDULED FOR EGD WITH COLONOSCOPY AND SO PT IS ON NPO.WE HOLD TAB COZAAR 25MG PO IN AM MEDS.
--- NOTE | 2018-09-02 13:30 | NUR ---
MS RN NOTES PER SURGERY UNIT,PT REFUSED TO DO EGD WITH COLONOSCOPY IN AM.RUG DESIGNER HAFSA MADE AWARE,RESUME CLEAR LIQUIDS AND STOP NPO.NEW ORDERS NOTED AND CARRIED OUT.
[2018-09-02] MEDS: SOD FERRIC GLUC 125 MG in IV NS 0.9% 100 ML IV SCH (13:46)
[2018-09-02] MEDS: NEXIUM 40 MG VIAL IV SCH (16:16)
--- NOTE | 2018-09-02 17:00 | NUR ---
MS RN NOTES POSTAGE MACHINE OPERATOR HAFSA ORDERED PSYCH CONSULTATION IN AM FOR DEMENTIA.NEW ORDERS NOTED AND CARRIED OUT.
--- NOTE | 2018-09-02 18:35 | NUR ---
MS RN CLOSING NOTES PT IS ON BED,ALERT/ORIENTED X3 WITH EPISODES OF FORGETFULNESS.1:1SITTER IS AT BEDSIDE.IV LINE IS ON LEFT FA G20 WITH IV FLUIDS RUNNING.SITE IS CLEAN AND DRY.RESPIRATION IS EVEN AND NONLABORED.ALL DUE MEDS ARE GIVEN.ENDORSED TO CONTACT CENTER REPRESENTATIVE RN FOR ULISSES.
--- NOTE | 2018-09-02 19:38 | NUR ---
MS RN NOTES RECEIVED PT ON BD. WITH SITTER AT BEDSIDE. ON RA NO RESPIRATORY DISTRESS NOTED. PT A/O X 2 CONFUSED TRYING TO GET OUT OF BED. IV ACCESS ON LGA G20 NS @ 75CC/HR. HEAD OF BED ELEVATED. SIDE RAILS UP. CALL LIGHT WITHIN REACH. BED ALARM ON. WILL CONTINUE TO MONITOR PT CLOSELY.
--- NOTE | 2018-09-02 20:15 | NUR ---
MS RN NOTES CALLED DR NAVARRETE FOR BLOOD PRESSURE MED. PER GIVEN SCHEDULE BLOOD PRESSURE MEDICINE. CALLED PHARMACY TO VERIFY ORDERS.
[2018-09-02] MEDS ORDERED: LOSARTAN POTASSIUM 25 MG TABLET PO ONE (20:30)
[2018-09-02] MEDS: ATORVASTATIN 10 MG TABLET PO SCH (21:05)
--- NOTE | 2018-09-02 21:44 | NUR ---
MS RN NOTES CALLED DR BUSH FOR BP OF 176/92. HYDRALAZINE 20MG PO ORDERED.
[2018-09-02] MEDS ORDERED: hydrALAZINE HCL 10 MG TABLET PO ONE (22:00)
[2018-09-03 05:00] VITALS: BP 159/63
--- NOTE | 2018-09-03 07:03 | NUR ---
MS RN NOTES NO ACUTE CHANGES NOTED DURING THE SHIFT. PROVIDED COMFORT AND SAFETY. WILL ENDORSE TO THE AM NURSE FOR CONTINUITY OF CARE.
[2018-09-03 07:18] LABS: BASOPHILS % (AUTO) 0.6 % (0.0-2.0); EOSINOPHILS % (AUTO) 2.9 % (0.0-6.0); HEMATOCRIT 29 % (33-45); HEMOGLOBIN 9.2 g/dL (11.5-14.8); LYMPHOCYTES # (AUTO) 0.5 /CMM (0.8-4.8); LYMPHOCYTES % (AUTO) 8.9 % (20.0-44.0); MEAN CORPUSCULAR HGB CONC 32 g/dl (31.0-36.0); MEAN CORPUSCULAR VOLUME 74 fL (82-100); MONOCYTES # (AUTO) 0.5 /CMM (0.1-1.30); MONOCYTES % (AUTO) 9.1 % (2.0-12.0); NEUTROPHILS % (AUTO) 78.5 % (43.0-81.0); PLATELET COUNT (AUTO) 203 /CMM (150-450); RED BLOOD CELL COUNT(AUTO) 3.85 MIL/uL (4.0-5.2); WHITE BLOOD COUNT (AUTO) 5.1 K/uL (4.3-11.0)
[2018-09-03] MEDS: SUCRALFATE 1 G TABLET PO SCH ×3 (07:35→16:46)
[2018-09-03 07:36] LABS: FERRITIN 70 ng/mL (8-388)
[2018-09-03 07:56] LABS: IRON, SERUM 164 ug/dl (50-175); TOTAL IRON BINDING CAPACITY 323 ug/dl (250-450)
[2018-09-03 08:00] VITALS: BP 144/51
[2018-09-03] MEDS: THIAMINE HCL 100 MG TABLET PO SCH (08:45)
[2018-09-03] MEDS: MEMANTINE HCL 5 MG TABLET PO SCH ×2 (08:45→16:46)
[2018-09-03] MEDS: FOLIC ACID 1 MG TABLET PO SCH (08:45)
[2018-09-03] MEDS: CYANOCOBALAMIN 100 MCG TABLET PO SCH (08:45)
[2018-09-03] MEDS: LOSARTAN POTASSIUM 25 MG TABLET PO SCH (08:45)
[2018-09-03] MEDS: SERTRALINE HCL 25 MG TABLET PO SCH (08:45)
[2018-09-03] MEDS: DONEPEZIL 5 MG TABLET PO SCH ×2 (08:45→16:46)
[2018-09-03] MEDS: MULTIVITAMIN/LUTEIN/MINERALS 1 TAB PO SCH (08:45)
[2018-09-03] MEDS: ENSURE ENLIVE 237 ML LIQUID (VANILLA) PO SCH ×2 (09:00→16:47)
[2018-09-03] MEDS ORDERED: FERR325T6 PO (10:17)
--- NOTE | 2018-09-03 11:48 | NUR ---
RECEIVED D/C ORDERS FROM DR. NELI Koenig. PATIENT HAS REFUSED COLONOSCOPY DURING MD/INSIDE SOLAR SALES CONSULTANT VISITS, HOWEVER DOES HAVE A HISTORY OF DEMENTIA. THE DPOA HAS REACHED OUT AND WOULD LIKE TO SPEAK WITH DR. NELI Koenig. DR. NELI Koenig. AWARE.
[2018-09-03] MEDS: SIMETHICONE SUSP 40 MG/0.6 ML BOTTLE PO SCH ×3 (11:58→16:46)
[2018-09-03 13:00] VITALS: BP 165/61
[2018-09-03] MEDS: SOD FERRIC GLUC 125 MG in IV NS 0.9% 100 ML IV SCH (14:09)
--- NOTE | 2018-09-03 16:26 | NUR ---
NO RESPONSE FROM DR. QUINTEROS, HOWEVER, YVONNE "MOUNIKA" SPOKE TO DR. JOHNSTON WHO SAID NO NEED FOR EGD/COLONOSCOPY, PATIENT TO FOLLOW UP OUTPATIENT.
--- NOTE | 2018-09-03 19:00 | NUR ---
REPORT GIVEN TO GEOFF OTERO @[facility]. INFORMED THAT PATIENT NEEDS TO FOLLOW UP WITH OUTPATIENT COLONOSCOPY PER DR. JOHNSTON.
--- NOTE | 2018-09-03 19:32 | NUR ---
SITTER HAS LEFT FOR THE NIGHT. PATIENT SEEMS INCREASINGLY CONFUSED AT THIS TIME. NIGHT RN AT BEDSIDE.
[2018-09-03] MEDS ORDERED: PANTOPRAZOLE 40 MG/PACK PACK PO SCH (21:00)
== END 2018-09-03 22:18 | DRG 378 ==
LOC: ER 12:40 → TELE1 14:28 → MEDSG1 09-02 11:50
PROC: 30233N1 Transfusion of Nonautologous Red Blood Cells into Peripheral Vein, Percutaneous Approach (ICD-10-PCS; principal; 2018-09-01)
DX: K92.2 Gastrointestinal hemorrhage, unspecified (principal); E44.1 Mild protein-calorie malnutrition; E86.0 Dehydration; R55 Syncope and collapse; D50.9 Iron deficiency anemia, unspecified; E11.9 Type 2 diabetes mellitus without complications; E78.5 Hyperlipidemia, unspecified; F03.90 Unspecified dementia, unspecified severity, without behavioral disturbance, psychotic disturbance, mood disturbance, and anxiety; I10 Essential (primary) hypertension; Z88.0 Allergy status to penicillin; Z68.20 Body mass index [BMI] 20.0-20.9, adult; M25.552 Pain in left hip
CPT/HCPCS: 36415; 70450-TC; 71045-TC; 73020; 73552; 80048-TC; 80061-TC; 80076-TC; 82272-TC; 82728-TC; 83540-TC; 83605-TC; 83735-TC; 84100-TC; 84443-TC; 84484-TC; 85025-TC; 85730-TC; 86850-TC; 86921-TC; 87040-TC; 87081-TC; 93307-TC; 93880-TC; 97116-TC; 97530-TC; C9113; G0378; J2916; J7030; J7040; J7050; P9016-BL

== ENCOUNTER 2020-10-19 18:57 | Inpatient (IN) | payer BC, MEDICARE ==
[~2020-10-19] VITALS: Ht 167.6 cm; Wt 56.7 kg
[~2020-10-19 18:57] MED LIST changes: +AZEL137S7 BNOSTRILS; +CYAN100T44 PO; +FERR325T6 PO; +LACT-58 PO; +LOSA25TA27 PO; -MULT-1160 PO; +MULT-1168 PO; -OMEP20CA10 PO; +OMEP20CA15 PO; +SIME40DR2 PO
[2020-10-19] MEDS ORDERED: BISA10SU11 RC (19:10)
[2020-10-19] MEDS ORDERED: TRAM50TA2 PO (19:10)
[2020-10-19] MEDS ORDERED: ACET-2605 PO (19:10)
[2020-10-19] MEDS ORDERED: MULT-447 PO (19:10)
[2020-10-19] MEDS ORDERED: LEVE500T9 PO (19:10)
[2020-10-19] MEDS ORDERED: HYDR-4076 PO (19:10)
[2020-10-19] MEDS ORDERED: MAGN400O6 PO (19:10)
[2020-10-19] MEDS ORDERED: NA P133E RC (19:10)
[2020-10-19] MEDS ORDERED: ASCO-352 PO (19:10)
[2020-10-19 19:14] LABS: BASOPHILS # (AUTO) 0.1 K/uL (0.0-0.2); BASOPHILS % (AUTO) 0.7 % (0.0-2.0); EOSINOPHILS % (AUTO) 3.3 % (0.0-6.0); HEMATOCRIT 41 % (33-45); HEMOGLOBIN 13.6 g/dL (11.5-14.8); LYMPHOCYTES # (AUTO) 0.8 K/uL (0.8-4.8); LYMPHOCYTES % (AUTO) 11.7 % (20.0-44.0); MEAN CORPUSCULAR HGB CONC 33 g/dl (31.0-36.0); MEAN CORPUSCULAR VOLUME 99 fL (82-100); MONOCYTES # (AUTO) 0.4 K/uL (0.1-1.30); MONOCYTES % (AUTO) 5.2 % (2.0-12.0); NEUTROPHILS # (AUTO) 5.5 K/uL (1.8-8.9); NEUTROPHILS % (AUTO) 79.1 % (43.0-81.0); PLATELET COUNT (AUTO) 250 K/uL (150-450); RED BLOOD CELL COUNT(AUTO) 4.12 MIL/uL (4.0-5.2)
[2020-10-19 19:23] LABS: CALCIUM, SERUM 8.6 mg/dL (8.5-10.1); CARBON DIOXIDE 26 mmol/L (21-32); CHLORIDE 107 mmol/L (98-107); CREATININE 1.1 mg/dL (0.6-1.3); GLUCOSE 123 mg/dL (74-106); POTASSIUM 3.6 mmol/L (3.5-5.1); SODIUM SERUM 142 mmol/L (136-145); UREA NITROGEN, BLOOD 21 mg/dL (7-18)
[2020-10-19 19:28] LABS: ALANINE AMINOTRANSFERASE 14 U/L (12-78); ALBUMIN 3.6 g/dL (3.4-5.0); ALKALINE PHOSPHATASE 85 U/L (46-116); ASPARTATE AMINOTRANSFERASE 21 U/L (15-37); BILIRUBIN,DIRECT 0.2 mg/dL (0.0-0.2); BILIRUBIN,TOTAL 0.7 mg/dL (0.2-1.0); TOTAL PROTEIN, SERUM 6.5 g/dL (6.4-8.2)
[2020-10-19] MEDS ORDERED: IV NS 0.9% 500 ML BAG IV ONE (19:30)
[2020-10-20] MEDS ORDERED: ONDANSETRON HCL/PF 4 MG/2 ML VIAL IVP PRN
[2020-10-20] MEDS ORDERED: ACETAMINOPHEN 325 MG TABLET PO PRN
[2020-10-20] MEDS ORDERED: NA PHOS,M-B/NA PHOS,DI-BA 1 EA ENEMA RC PRN
[2020-10-20] MEDS ORDERED: MAGNESIUM HYDROXIDE 30 ML UDC PO PRN
[2020-10-20] MEDS ORDERED: TRAMADOL HCL 50 MG TABLET PO PRN
[2020-10-20] MEDS ORDERED: BISACODYL SUPP (10 MG) 10 MG/SUPP.RECT SUPP.RECT RC PRN
[2020-10-20] MEDS ORDERED: MORPHINE SULFATE INJ 2 MG/ML DISP.SYRIN IV PRN
[2020-10-20 05:52] LABS: BASOPHILS % (AUTO) 0.6 % (0.0-2.0); EOSINOPHILS % (AUTO) 2.7 % (0.0-6.0); HEMATOCRIT 40 % (33-45); HEMOGLOBIN 13.5 g/dL (11.5-14.8); LYMPHOCYTES # (AUTO) 0.7 K/uL (0.8-4.8); LYMPHOCYTES % (AUTO) 9.7 % (20.0-44.0); MEAN CORPUSCULAR HGB CONC 34 g/dl (31.0-36.0); MEAN CORPUSCULAR VOLUME 98 fL (82-100); MONOCYTES # (AUTO) 0.5 K/uL (0.1-1.30); MONOCYTES % (AUTO) 6.9 % (2.0-12.0); NEUTROPHILS # (AUTO) 5.8 K/uL (1.8-8.9); NEUTROPHILS % (AUTO) 80.1 % (43.0-81.0); PLATELET COUNT (AUTO) 230 K/uL (150-450); RED BLOOD CELL COUNT(AUTO) 4.08 MIL/uL (4.0-5.2); WHITE BLOOD COUNT (AUTO) 7.2 K/uL (4.3-11.0)
[2020-10-20 06:05] LABS: CHOLESTEROL 208 mg/dL (<200); HDL CHOLESTEROL 64 mg/dL (40-60); LDL 123 mg/dL (0-99); THYROID STIMULATING HORMONE 6.895 uIU/mL (0.358-3.74); TRIGLYCERIDES 82 mg/dL (30-150)
[2020-10-20 06:08] LABS: ALANINE AMINOTRANSFERASE 12 U/L (12-78); ALBUMIN 3.5 g/dL (3.4-5.0); ALKALINE PHOSPHATASE 72 U/L (46-116); ASPARTATE AMINOTRANSFERASE 25 U/L (15-37); BILIRUBIN,TOTAL 1.2 mg/dL (0.2-1.0); CALCIUM, SERUM 8.4 mg/dL (8.5-10.1); CARBON DIOXIDE 24 mmol/L (21-32); CHLORIDE 108 mmol/L (98-107); CREATININE 1.1 mg/dL (0.6-1.3); GLUCOSE 98 mg/dL (74-106); MAGNESIUM 2.1 mg/dL (1.8-2.4); PHOSPHORUS 3.9 mg/dL (2.5-4.9); POTASSIUM 3.8 mmol/L (3.5-5.1); SODIUM SERUM 144 mmol/L (136-145); TOTAL PROTEIN, SERUM 6.2 g/dL (6.4-8.2); UREA NITROGEN, BLOOD 18 mg/dL (7-18)
[2020-10-20] MEDS ORDERED: LEVETIRACETAM (250 MG) 250 MG TABLET PO ONE (08:08)
[2020-10-20] MEDS ORDERED: DOCUSATE SODIUM 100 MG CAPSULE PO ONE (08:08)
[2020-10-20] MEDS ORDERED: PANTOPRAZOLE 40 MG TABLET.DR PO ONE (08:09)
[2020-10-20] MEDS ORDERED: MULTIVIT W/MINERALS 1 TAB TABLET ONE (08:09)
[2020-10-20] MEDS: DOCUSATE SODIUM 100 MG CAPSULE PO SCH ×2 (08:20→17:58)
[2020-10-20] MEDS: MULTIVIT W/MINERALS 1 TAB TABLET PO SCH (08:20)
[2020-10-20] MEDS: LEVETIRACETAM (250 MG) 250 MG TABLET PO SCH ×2 (08:20→20:28)
[2020-10-20] MEDS: PANTOPRAZOLE 40 MG TABLET.DR PO SCH (08:20)
[2020-10-20] MEDS ORDERED: IV NS 0.9% 1,000 ML IV PRN (11:00)
[2020-10-20] MEDS: Z GUARD REMEDY 2 OZ OINT TP SCH (12:30)
[2020-10-20] MEDS: hydrALAZINE HCL 25 MG TABLET PO SCH (17:58)
[2020-10-20] MEDS ORDERED: LABETALOL HCL IV 100MG VIAL IV PRN (18:00)
[2020-10-20 20:00] VITALS: BP 170/79
[2020-10-20] MEDS ORDERED: CLONIDINE HCL 0.1MG/24H PTWK 1 EA PATCH TD SCH (20:30)
[2020-10-21] VITALS (8 sets, daily range): BP systolic 105–187; BP diastolic 46–89
[2020-10-21] MEDS: Z GUARD REMEDY 2 OZ OINT TP SCH ×2 (00:02→12:16)
[2020-10-21 06:43] LABS: BASOPHILS % (AUTO) 0.8 % (0.0-2.0); EOSINOPHILS % (AUTO) 2.9 % (0.0-6.0); HEMATOCRIT 43 % (33-45); HEMOGLOBIN 14.6 g/dL (11.5-14.8); LYMPHOCYTES # (AUTO) 0.9 K/uL (0.8-4.8); LYMPHOCYTES % (AUTO) 15.5 % (20.0-44.0); MEAN CORPUSCULAR HGB CONC 34 g/dl (31.0-36.0); MEAN CORPUSCULAR VOLUME 98 fL (82-100); MONOCYTES # (AUTO) 0.4 K/uL (0.1-1.30); NEUTROPHILS # (AUTO) 4.6 K/uL (1.8-8.9); NEUTROPHILS % (AUTO) 74.8 % (43.0-81.0); PLATELET COUNT (AUTO) 236 K/uL (150-450); RED BLOOD CELL COUNT(AUTO) 4.39 MIL/uL (4.0-5.2); WHITE BLOOD COUNT (AUTO) 6.1 K/uL (4.3-11.0)
[2020-10-21 07:03] LABS: CALCIUM, SERUM 8.6 mg/dL (8.5-10.1); CREATININE 1.1 mg/dL (0.6-1.3); MAGNESIUM 2.3 mg/dL (1.8-2.4)
[2020-10-21] MEDS: PANTOPRAZOLE 40 MG TABLET.DR PO SCH (08:22)
[2020-10-21] MEDS: LEVOTHYROXINE SODIUM 25 MCG TABLET PO SCH (08:23)
[2020-10-21] MEDS: DOCUSATE SODIUM 100 MG CAPSULE PO SCH ×2 (08:23→17:56)
[2020-10-21] MEDS: hydrALAZINE HCL 25 MG TABLET PO SCH ×3 (08:23→17:56)
[2020-10-21] MEDS: MULTIVIT W/MINERALS 1 TAB TABLET PO SCH (08:24)
[2020-10-21] MEDS: LEVETIRACETAM (250 MG) 250 MG TABLET PO SCH ×2 (08:24→22:03)
[2020-10-21] MEDS ORDERED: ACETAMINOPHEN 650 MG/SUPP.RECT RC PRN (15:30)
[2020-10-21] MEDS ORDERED: NOREPINEPHRINE 8 MG in IV NS 0.9% 242 ML IV PRN (15:30)
[2020-10-21] MEDS ORDERED: IV NS 0.9% 500 ML IV ONE (15:30)
[2020-10-21 17:24] LABS: ALBUMIN 4.2 g/dL (3.4-5.0); BILIRUBIN,DIRECT 0.4 mg/dL (0.0-0.2); BILIRUBIN,TOTAL 1.9 mg/dL (0.2-1.0); TOTAL PROTEIN, SERUM 7.2 g/dL (6.4-8.2)
[2020-10-21] MEDS ORDERED: ATORVASTATIN 10 MG TABLET PO SCH (22:00)
[2020-10-22] MEDS: Z GUARD REMEDY 2 OZ OINT TP SCH
[2020-10-22 01:03] VITALS: BP 145/58
[2020-10-22 04:10] VITALS: BP 118/70
[2020-10-22 07:11] LABS: BASOPHILS % (AUTO) 0.7 % (0.0-2.0); EOSINOPHILS % (AUTO) 2.8 % (0.0-6.0); HEMATOCRIT 40 % (33-45); HEMOGLOBIN 13.6 g/dL (11.5-14.8); LYMPHOCYTES # (AUTO) 0.8 K/uL (0.8-4.8); LYMPHOCYTES % (AUTO) 14.1 % (20.0-44.0); MEAN CORPUSCULAR HGB CONC 34 g/dl (31.0-36.0); MEAN CORPUSCULAR VOLUME 97 fL (82-100); MONOCYTES # (AUTO) 0.4 K/uL (0.1-1.30); MONOCYTES % (AUTO) 6.8 % (2.0-12.0); NEUTROPHILS # (AUTO) 4.4 K/uL (1.8-8.9); NEUTROPHILS % (AUTO) 75.6 % (43.0-81.0); PLATELET COUNT (AUTO) 216 K/uL (150-450); RED BLOOD CELL COUNT(AUTO) 4.12 MIL/uL (4.0-5.2); WHITE BLOOD COUNT (AUTO) 5.9 K/uL (4.3-11.0)
[2020-10-22 07:41] LABS: ALANINE AMINOTRANSFERASE 13 U/L (12-78); ALBUMIN 3.5 g/dL (3.4-5.0); ALKALINE PHOSPHATASE 71 U/L (46-116); ASPARTATE AMINOTRANSFERASE 24 U/L (15-37); BILIRUBIN,DIRECT 0.3 mg/dL (0.0-0.2); BILIRUBIN,TOTAL 1.9 mg/dL (0.2-1.0); CALCIUM, SERUM 8.5 mg/dL (8.5-10.1); CARBON DIOXIDE 25 mmol/L (21-32); CHLORIDE 107 mmol/L (98-107); CREATININE 1.1 mg/dL (0.6-1.3); GLUCOSE 78 mg/dL (74-106); MAGNESIUM 2.3 mg/dL (1.8-2.4); POTASSIUM 4.1 mmol/L (3.5-5.1); SODIUM SERUM 143 mmol/L (136-145); TOTAL PROTEIN, SERUM 6.1 g/dL (6.4-8.2); UREA NITROGEN, BLOOD 22 mg/dL (7-18)
[2020-10-22 08:00] VITALS: BP 140/79
[2020-10-22 08:03] VITALS: BP 140/79
[2020-10-22] MEDS: hydrALAZINE HCL 25 MG TABLET PO SCH (08:03)
[2020-10-22] MEDS: LEVOTHYROXINE SODIUM 25 MCG TABLET PO SCH (08:03)
[2020-10-22] MEDS: PANTOPRAZOLE 40 MG TABLET.DR PO SCH (08:03)
[2020-10-22] MEDS: DOCUSATE SODIUM 100 MG CAPSULE PO SCH (08:03)
[2020-10-22] MEDS: MULTIVIT W/MINERALS 1 TAB TABLET PO SCH (08:03)
[2020-10-22] MEDS: LEVETIRACETAM (250 MG) 250 MG TABLET PO SCH (08:03)
== END 2020-10-22 13:08 | DRG 312 ==
LOC: ER 19:05 → TRANSITION 10-20 02:14 → TELE1 10-20 16:19 → MEDSG1 10-20 19:54
PROVIDERS: ADMIT Internal Medicine; ATTEND Internal Medicine
DX: R55 Syncope and collapse (principal); D68.59 Other primary thrombophilia; F02.80 Dementia in other diseases classified elsewhere, unspecified severity, without behavioral disturbance, psychotic disturbance, mood disturbance, and anxiety; G30.9 Alzheimer's disease, unspecified; G40.909 Epilepsy, unspecified, not intractable, without status epilepticus; Z20.822 Contact with and (suspected) exposure to COVID-19; I10 Essential (primary) hypertension; E78.5 Hyperlipidemia, unspecified; N28.1 Cyst of kidney, acquired; I70.0 Atherosclerosis of aorta; E80.6 Other disorders of bilirubin metabolism; R94.6 Abnormal results of thyroid function studies; Z74.09 Other reduced mobility; K83.8 Other specified diseases of biliary tract; K82.8 Other specified diseases of gallbladder
CPT/HCPCS: 36415; 71045-TC; 76700-TC; 80048-TC; 80053-TC; 80061-TC; 80076-TC; 82378; 82962-TC; 83735-TC; 83880; 84100-TC; 84439-TC; 84443-TC; 84484-TC; 85025-TC; 87081-TC; 93307-TC; 93880-TC; 97116-TC; 97530-TC; C9803; G0378; J2270; J2405; J3490; J7030; J7040; U0003

== ENCOUNTER 2021-05-14 19:06 | Emergency (ER) | payer BC, MEDICARE ==
[~2021-05-14] VITALS: Ht 170.2 cm; Wt 59.4 kg
[~2021-05-14 19:06] MED LIST changes: +ACET-2605 PO; -ACET-868 PO; +ASCO-352 PO; -ASPI-1169 PO; -ATOR10TA PO; -AZEL137S7 BNOSTRILS; +BISA10SU11 RC; -CYAN100T44 PO; -DONE10TA44 PO; -FERR325T6 PO; -FEXO-63 PO; -FISH1CAP16 PO; -FLUT16SP BNOSTRILS; -FOLI1TAB16 PO; +HYDR-4076 PO; -LACT-58 PO; +LEVE500T9 PO; -LOSA25TA27 PO; +MAGN400O6 PO; -MEMA10TA PO; -MULT-1168 PO; +MULT-447 PO; +NA P133E RC; -OMEP20CA15 PO; -SERT25TA PO; -SIME40DR2 PO; -THIA100T13 PO; +TRAM50TA2 PO
--- NOTE | 2021-05-14 19:14 | NUR ---
ED [facility]78 FROM [facility] C/O BACK OF THE HEAD PAIN S/P MECHANICAL TRIP AND FALL. PT AWAKE. NO ABNORMAL LIMB SHORTENING, ROTATION, OR DEFORMITY. VSS. CONNECTED PT TO POX AND MONITOR. SAFETY MEASURES IN PLACE.
[2021-05-14 19:20] VITALS: BP 160/92
--- NOTE | 2021-05-14 19:55 | NUR ---
PT RETURNED TO ER BED [address] VIA JASSI
--- NOTE | 2021-05-14 20:22 | NUR ---
[facility] ETA 60-70 MINUTES
--- NOTE | 2021-05-14 20:57 | NUR ---
REPORT GIVEN TO ROCKY FROM [facility] FOR ULISSES.
--- NOTE | 2021-05-14 21:46 | NUR ---
REPORT GIVEN TO [facility]. Patient discharged to [facility] in stable condition. Written and verbal after care instructions given. Patient verbalizes understanding of instruction.
== END 2021-05-14 21:48 ==
LOC: ER 19:55
DX: S00.03XA Contusion of scalp, initial encounter (principal); G30.9 Alzheimer's disease, unspecified; I10 Essential (primary) hypertension; E78.5 Hyperlipidemia, unspecified; Z86.59 Personal history of other mental and behavioral disorders; Z88.0 Allergy status to penicillin; Z79.1 Long term (current) use of non-steroidal anti-inflammatories (NSAID); Z79.899 Other long term (current) drug therapy; W18.30XA Fall on same level, unspecified, initial encounter; Y93.89 Activity, other specified; Y92.89 Other specified places as the place of occurrence of the external cause; Y99.8 Other external cause status
CPT/HCPCS: 70450-TC